=== PATIENT | female | born 1980 | race Caucasian/White ===

== ENCOUNTER 2018-06-20 11:36 | Outpatient (CLI) | payer BC | END 2018-06-20 11:37 | disposition home or self-care (01) | LOC: CTENTCT 11:36 | PROVIDERS: ATTEND Otolaryngology Plastic Surgery within the Head & Neck | DX: J32.9 Chronic sinusitis, unspecified (principal) | CPT/HCPCS: 70486 ==

== ENCOUNTER 2018-07-15 05:59 | Emergency (ER) | payer BC ==
[2018-07-15 06:26] LABS: #Basophils 0.1 thou/uL (0.0-0.2); #Eosinphils 0.2 thou/uL (0.0-0.7); #Lymphocytes 3.5 thou/uL (1.20-3.40); #Monocytes 0.6 thou/uL (0.11-0.59); #Neutrophils 4.1 thou/uL (1.40-6.50); %Eosinophils 2.3 % (0.0-10.0); %Lymphocytes 41.2 % (21.0-51.0); %Monocytes 7.3 % (0.0-10.0); %Neutrophils 48.1 % (42.0-75.0); Hemoglobin 13.4 g/dL (12.0-16.0); Mean Corpuscular HGB CONC 33.4 g/dL (32.0-36.0); Mean Corpuscular Hemoglobin 29.5 pg (27.0-31.0); Mean Corpuscular Volume 88.4 fL (78.0-98.0); Mean Platelet Volume 7.3 fL (7.4-10.4); Platelet Count 340 thou/uL (130-400); RBC Distribution Width 11.4 % (11.5-14.5); Red Blood Cell (RBC) Count 4.53 mill/uL (4.20-5.40); White Blood Cell (WBC) Count 8.5 thou/uL (4.8-10.8)
[2018-07-15] MEDS ORDERED: Ketorolac Tromethamine 30 MG/ML VIAL ONE (06:31)
[2018-07-15 06:46] LABS: ALT (SGPT) 30 U/L (8-55); AST (SGOT) 23 U/L (5-34); Albumin 4.1 g/dL (3.5-5.0); Alkaline Phosphatase 45 U/L (40-150); Anion Gap 11 mmol/L (10-20); BUN (Urea Nitrogen) 9 mg/dL (7.0-18.7); Bilirubin, Total 0.4 mg/dL (0.2-1.2); CK (CPK) 273 U/L (29-168); Calc. Creatinine Clearance 0 mL/min (70-130); Calcium 9.6 mg/dL (7.8-10.44); Carbon Dioxide 27 mmol/L (22-29); Chloride 105 mmol/L (98-107); Estimated GFR-MDRD 70; Globulin 3.7 g/dL (2.4-3.5); Glucose 85 mg/dL (70-105); Lipase 15 U/L (8-78); Potassium 3.2 mmol/L (3.5-5.1); Protein, Total 7.8 g/dL (6.0-8.3); Sodium 140 mmol/L (136-145)
--- NOTE | 2018-07-15 08:32 | RAD ---
PORTABLE CHEST: Date: 07/15/18 HISTORY: Right-sided chest pain. FINDINGS: Heart size and mediastinum are within normal limits. Lungs are clear of infiltrates. No significant b xiang findings. IMPRESSION: No active intrathoracic disease. POS: [facility]
== END 2018-07-15 07:40 | disposition home or self-care (01) ==
LOC: ERS 05:59
DX: R07.81 Pleurodynia (principal); J45.909 Unspecified asthma, uncomplicated
CPT/HCPCS: 71045; 80053; 82550; 83690; 84484; 85025; 85379; 93005; 96374; J1885

== ENCOUNTER 2019-04-11 20:50 | Emergency (ER) | payer BC ==
[2019-04-11 22:05] LABS: Amphetamine Not Detected (NotDetected); Barbiturates Screen Not Detected (NotDetected); Benzodiazepine Screen Not Detected (NotDetected); Cocaine Metabolite Screen Not Detected (NotDetected); Medtox Control Line Valid? VALID (VALID); Medtox Reader # READER 1; Methadone Not Detected (NotDetected); Methamphetamine Not Detected (NotDetected); Opiate Screen Not Detected (NotDetected); Oxycodone Screen Not Detected (NotDetected); Phencyclidine (PCP) Not Detected (NotDetected); THC/Cannabinoid Screen Not Detected (NotDetected); Tricyclic Screen Not Detected (NotDetected)
[2019-04-11 22:37] LABS: #Basophils 0.1 thou/uL (0.0-0.2); #Eosinphils 0.2 thou/uL (0.0-0.7); #Lymphocytes 3.3 thou/uL (1.20-3.40); #Monocytes 0.6 thou/uL (0.11-0.59); #Neutrophils 6.6 thou/uL (1.40-6.50); %Basophils 0.5 % (0.0-1.0); %Eosinophils 1.7 % (0.0-10.0); %Lymphocytes 30.9 % (21.0-51.0); %Monocytes 5.8 % (0.0-10.0); %Neutrophils 61.1 % (42.0-75.0); Hemoglobin 12.5 g/dL (12.0-16.0); Mean Corpuscular HGB CONC 34.3 g/dL (32.0-36.0); Mean Corpuscular Hemoglobin 30.1 pg (27.0-31.0); Mean Corpuscular Volume 87.7 fL (78.0-98.0); Platelet Count 359 thou/uL (130-400); RBC Distribution Width 11.2 % (11.5-14.5); Red Blood Cell (RBC) Count 4.16 mill/uL (4.20-5.40); White Blood Cell (WBC) Count 10.7 thou/uL (4.8-10.8)
[2019-04-11 22:59] LABS: Acetaminophen Less than 6.0 mcg/mL (10.0-30.0); Alcohol Less than 10 mg/dL (Less than 10); Anion Gap 11 mmol/L (10-20); BUN (Urea Nitrogen) 5 mg/dL (7.0-18.7); Calc. Creatinine Clearance 0 mL/min (70-130); Calcium 8.8 mg/dL (7.8-10.44); Carbon Dioxide 24 mmol/L (22-29); Chloride 108 mmol/L (98-107); Estimated GFR-MDRD 83; Glucose 64 mg/dL (70-105); Potassium 3.8 mmol/L (3.5-5.1); Salicylate Less than 8.0 mg/dL (15.0-30.0); Sodium 139 mmol/L (136-145)
[2019-04-12 01:06] LABS: Pregnancy Test - Urine (BHCG) Negative (Negative); Pregu Control Background? CLEAR/WHITE (CLR/WHITE); Pregu Control Bar Appear? YES (CONTROL BAR); Specific Gravity 1.008 (1.002-1.036)
== END 2019-04-12 01:58 | disposition home or self-care (01) ==
LOC: ERS 20:50
DX: R45.851 Suicidal ideations (principal); J45.909 Unspecified asthma, uncomplicated; F41.9 Anxiety disorder, unspecified; F32.9 Major depressive disorder, single episode, unspecified; Z79.899 Other long term (current) drug therapy
CPT/HCPCS: 36415; 80048; 80306; 80307; 81025; 82550; 84443; 85025; 93005

== ENCOUNTER 2020-03-22 09:02 | Emergency (ER) | payer BC | END 2020-03-22 10:16 | disposition home or self-care (01) | LOC: ERS 09:02 | DX: A60.04 Herpesviral vulvovaginitis (principal); J45.909 Unspecified asthma, uncomplicated; Z79.899 Other long term (current) drug therapy; R11.2 Nausea with vomiting, unspecified; R51.9 Headache, unspecified | CPT/HCPCS: 36415; 80053; 82550; 85025; 96365; 96375; 99282; J1200; J1885; J2765; Q0162 ==

== ENCOUNTER 2020-03-22 14:14 | Emergency (ER) | payer BC ==
[2020-03-22] MEDS ORDERED: Acetaminophen 500 MG TAB ONE (15:26)
[2020-03-22] MEDS ORDERED: Ondansetron ODT 4 MG TAB ONE (15:26)
[2020-03-22 16:47] LABS: #Basophils 0.1 thou/uL (0.0-0.2); #Eosinphils 0.1 thou/uL (0.0-0.7); #Lymphocytes 2.4 thou/uL (1.20-3.40); #Neutrophils 10.4 thou/uL (1.40-6.50); %Basophils 0.4 % (0.0-1.0); %Eosinophils 0.6 % (0.0-10.0); %Lymphocytes 17.4 % (21.0-51.0); %Monocytes 7.4 % (0.0-10.0); %Neutrophils 74.2 % (42.0-75.0); Hemoglobin 13.5 g/dL (12.0-16.0); Mean Corpuscular HGB CONC 32.5 g/dL (32.0-36.0); Mean Corpuscular Hemoglobin 28.8 pg (27.0-31.0); Mean Corpuscular Volume 88.8 fL (78.0-98.0); Mean Platelet Volume 6.5 fL (7.4-10.4); Platelet Count 541 thou/uL (130-400); RBC Distribution Width 11.6 % (11.5-14.5); Red Blood Cell (RBC) Count 4.69 mill/uL (4.20-5.40)
[2020-03-22 17:12] LABS: Anion Gap 14 mmol/L (10-20); BUN (Urea Nitrogen) 11 mg/dL (7.0-18.7); Calc. Creatinine Clearance 0 mL/min (70-130); Carbon Dioxide 29 mmol/L (22-29); Chloride 99 mmol/L (98-107); Potassium 3.3 mmol/L (3.5-5.1); Sodium 139 mmol/L (136-145)
[2020-03-22 17:13] LABS: ALT (SGPT) 48 U/L (8-55); AST (SGOT) 25 U/L (5-34); Albumin 3.8 g/dL (3.5-5.0); Alkaline Phosphatase 50 U/L (40-110); Bilirubin, Total 0.6 mg/dL (0.2-1.2); CK (CPK) 56 U/L (29-168); Calcium 8.6 mg/dL (7.8-10.44); Globulin 3.9 g/dL (2.4-3.5); Glucose 94 mg/dL (70-105); Protein, Total 7.7 g/dL (6.0-8.3)
[2020-03-22] MEDS ORDERED: Ketorolac Tromethamine 30 MG/ML VIAL ONE (19:37)
[2020-03-22] MEDS ORDERED: Metoclopramide HCl 10 MG/2 ML VIAL ONE (19:37)
[2020-03-22] MEDS ORDERED: diphenhydrAMINE 50 MG/ML VIAL ONE (19:37)
== END 2020-03-22 21:33 | disposition home or self-care (01) ==
LOC: ERS 14:14
DX: R11.2 Nausea with vomiting, unspecified (principal); R51.9 Headache, unspecified; J45.909 Unspecified asthma, uncomplicated; Z79.899 Other long term (current) drug therapy
CPT/HCPCS: 36415; 80053; 82550; 85025; 96365; 96375; J1200; J1885; J2765; Q0162

== ENCOUNTER 2021-03-27 22:46 | Emergency (ER) | payer BC ==
[2021-03-27 23:23] LABS: #Basophils 0.1 thou/uL (0.0-0.2); #Lymphocytes 2.4 thou/uL (1.20-3.40); #Monocytes 0.2 thou/uL (0.11-0.59); #Neutrophils 2.4 thou/uL (1.40-6.50); %Eosinophils 0.2 % (0.0-10.0); %Lymphocytes 47.2 % (21.0-51.0); %Monocytes 4.6 % (0.0-10.0); %Neutrophils 46.9 % (42.0-75.0); Hemoglobin 14.7 g/dL (12.0-16.0); Mean Corpuscular HGB CONC 34.7 g/dL (32.0-36.0); Mean Corpuscular Hemoglobin 31.6 pg (27.0-31.0); Mean Platelet Volume 7.7 fL (7.4-10.4); Platelet Count 217 thou/uL (130-400); RBC Distribution Width 11.6 % (11.5-14.5); Red Blood Cell (RBC) Count 4.64 mill/uL (4.20-5.40)
[2021-03-27] MEDS ORDERED: Ketorolac Tromethamine 30 MG/ML VIAL ONE (23:26)
[2021-03-27] MEDS ORDERED: Ondansetron PF 4 MG/2 ML Vial ONE (23:26)
[2021-03-27 23:46] LABS: ALT (SGPT) 54 U/L (8-55); AST (SGOT) 57 U/L (5-34); Albumin 3.9 g/dL (3.5-5.0); Alkaline Phosphatase 41 U/L (40-110); Anion Gap 12 mmol/L (10-20); BUN (Urea Nitrogen) 8 mg/dL (7.0-18.7); Bilirubin, Total 0.4 mg/dL (0.2-1.2); Calc. Creatinine Clearance 0 mL/min (70-130); Calcium 8.8 mg/dL (7.8-10.44); Carbon Dioxide 25 mmol/L (22-29); Chloride 101 mmol/L (98-107); Globulin 3.6 g/dL (2.4-3.5); Glucose 115 mg/dL (70-105); Potassium 3.4 mmol/L (3.5-5.1); Protein, Total 7.5 g/dL (6.0-8.3); Sodium 135 mmol/L (136-145)
[2021-03-28] MEDS ORDERED: Metoclopramide HCl 10 MG/2 ML VIAL ONE (00:16)
[2021-03-28] MEDS ORDERED: Magnesium 2 GM/50 ML BAG (IN WATER) ONE (00:16)
[2021-03-28 01:53] LABS: SARS-CoV-2 NAA Rapid Test DETECTED (NotDetected)
== END 2021-03-28 01:23 | disposition home or self-care (01) ==
LOC: ERS 22:46
DX: U07.1 COVID-19 (principal); R51.9 Headache, unspecified; J45.909 Unspecified asthma, uncomplicated
CPT/HCPCS: 0240U; 71045; 80053; 85025; 93005; 96365; 96366; 96367; 96375; J1885; J2405; J2765; J3475